=== PATIENT | female | born 2000 | race African-American/Black ===

== ENCOUNTER 2021-03-12 23:03 | Emergency (ER) | payer MEDICAID, OTHER ==
[~2021-03-12] VITALS: Ht 162.6 cm; Wt 74.9 kg
[2021-03-12] MEDS ORDERED: IBUP-2029 MT (23:54)
[2021-03-13 00:19] VITALS: BP 128/67
== END 2021-03-13 00:23 | disposition home or self-care (01) ==
LOC: ER 23:28
DX: M25.531 Pain in right wrist (principal)
CPT/HCPCS: 29125; 81025; 99283

== ENCOUNTER 2022-01-29 21:14 | Emergency (ER) | payer OTHER ==
[~2022-01-29] VITALS: Ht 162.6 cm; Wt 82.9 kg
[~2022-01-29 21:14] MED LIST: IBUP-2029 MT
[2022-01-29] MEDS ORDERED: IBUPROFEN 600MG TABLET PO STA (22:08)
[2022-01-29 22:30] LABS: CLARITY URINE CLEAR (CLEAR); COLOR URINE YELLOW (YELLOW); KETONES URINE TRACE (NEGATIVE); LEUKOCYTE ESTERASE URINE NEGATIVE (NEGATIVE); NITRITE URINE POSITIVE (NEGATIVE); OCCULT BLOOD URINE NEGATIVE (NEGATIVE); PH URINE 6.5 (4.5-8.0); PROTEIN URINE NEGATIVE (NEGATIVE); SPECIFIC GRAVITY URINE 1.023 (1.005-1.030)
[2022-01-29 22:46] LABS: BASOPHILS % 0.6 % (0.0-2.0); EOSINOPHILS % 0.8 % (0.0-5.0); HEMATOCRIT. 40.3 % (36.0-48.0); HEMOGLOBIN. 13.3 g/dL (12.0-16.0); LYMPHOCYTES % 32.1 % (20.0-50.0); MEAN CORPUSCULAR HEMOGLOBIN 28.4 pg (28.0-32.0); MEAN CORPUSCULAR VOLUME 86.4 fL (81.0-99.0); MEAN PLATELET VOLUME 8.1 fl (7.4-10.4); MONOCYTES % 7.6 % (2.0-8.0); NEUTROPHILS % 58.9 % (40.0-76.0); PLATELET 261 x1000/uL (130-400); RED BLOOD CELL COUNT 4.66 mill/uL (4.2-5.4)
[2022-01-29 22:52] LABS: CHLORIDE 107 mEq/L (98-107)
[2022-01-29] MEDS ORDERED: IBUP-2029 MT (23:59)
[2022-01-29] MEDS ORDERED: CEPH500C2 MT (23:59)
[2022-01-30 00:28] VITALS: BP 112/66
[2022-01-30] MEDS ORDERED: IBUPROFEN 600MG TABLET PO SCH (00:30)
== END 2022-01-30 00:30 | disposition home or self-care (01) ==
LOC: ER 21:36
DX: N10 Acute pyelonephritis (principal)
CPT/HCPCS: 36415; 71045; 74018; 80053; 81003; 81025; 85025; 99284

== ENCOUNTER 2022-05-02 08:54 | Emergency (ER) | payer OTHER ==
[~2022-05-02] VITALS: Ht 162.6 cm; Wt 82.0 kg
[~2022-05-02 08:54] MED LIST changes: +CEPH500C2 MT
[2022-05-02 09:06] VITALS: BP 127/60
[2022-05-02] MEDS ORDERED: ACETAMINOPHEN 325MG TABLET PO ONE (10:15)
[2022-05-02 11:16] LABS: HEMOGLOBIN. 13.4 g/dL (12.0-16.0); MEAN CORPUSCULAR HEMOGLOBIN 28.6 pg (28.0-32.0); MEAN CORPUSCULAR VOLUME 87.7 fL (81.0-99.0); MEAN PLATELET VOLUME 8.1 fl (7.4-10.4); PLATELET 213 x1000/uL (130-400); RED BLOOD CELL COUNT 4.68 mill/uL (4.2-5.4); RED CELL DISTRIBUTION WIDTH 15.1 % (11.6-14.6)
[2022-05-02 11:27] LABS: CHLORIDE 110 mEq/L (98-107)
[2022-05-02 12:11] LABS: HCG SCREEN NEGATIVE
[2022-05-02 12:15] LABS: PLATELET ESTIMATE NORMAL
[2022-05-02] MEDS ORDERED: KETOROLAC 15MG/ML VIAL IM ONE (12:30)
== END 2022-05-02 10:05 | disposition home or self-care (01) ==
LOC: ER 09:30
DX: J06.9 Acute upper respiratory infection, unspecified (principal); R05.9 Cough, unspecified; D64.9 Anemia, unspecified; Z20.822 Contact with and (suspected) exposure to COVID-19
CPT/HCPCS: 36415; 71045; 80053; 81025; 84703; 85025; 87426; 96372; 99284; C9803; J1885

== ENCOUNTER 2022-07-30 20:01 | Emergency (ER) | payer OTHER ==
[~2022-07-30] VITALS: Ht 162.6 cm; Wt 81.0 kg
[2022-07-30 20:06] VITALS: BP 136/81
== END 2022-07-30 21:30 | disposition left against medical advice (07) ==
LOC: ER 20:01
DX: Z53.21 Procedure and treatment not carried out due to patient leaving prior to being seen by health care provider (principal)

== ENCOUNTER 2022-11-20 04:44 | Emergency (ER) | payer OTHER ==
[~2022-11-20] VITALS: Ht 162.6 cm; Wt 80.0 kg
[2022-11-20 04:54] VITALS: BP 150/57
[2022-11-20] MEDS ORDERED: IBUP-2029 MT (05:03)
[2022-11-20] MEDS ORDERED: T3 PO (05:03)
[2022-11-20] MEDS ORDERED: AMOX-494 MT (05:03)
== END 2022-11-20 05:18 | disposition home or self-care (01) ==
LOC: ER 04:44
DX: Z53.21 Procedure and treatment not carried out due to patient leaving prior to being seen by health care provider (principal)

== ENCOUNTER 2025-03-16 12:45 | Emergency (ER) | payer SELFPAY ==
[~2025-03-16] VITALS: Ht 167.6 cm; Wt 64.0 kg
[~2025-03-16 12:45] MED LIST changes: +AMOX-494 MT; +T3 PO
[2025-03-16 13:04] VITALS: O2SAT 100
[2025-03-16 13:54] VITALS: BP 127/91; PULSE 71; RESP 14; TEMP 37.1; O2SAT 100
== END 2025-03-16 13:54 | disposition home or self-care (01) ==
LOC: ER 12:45
DX: R11.10 Vomiting, unspecified (principal); F10.90 Alcohol use, unspecified, uncomplicated; Z79.899 Other long term (current) drug therapy; Y90.9 Presence of alcohol in blood, level not specified
CPT/HCPCS: 81025; 99282